=== PATIENT | female | born 1980 | race Caucasian/White ===

== ENCOUNTER 2019-04-22 08:32 | Outpatient (CLI) | payer BC, SELFPAY ==
--- NOTE | 2019-04-22 08:45 | MR_ITS ---
WS: [id number] MRI of the head and brain with and without IV contrast, 04/22/2019 Clinical Data: Vision loss Comparison: None. Findings: Ventricular system is normal without shift. No recent infarct or hemorrhage is seen. No abnormal intracerebral mass is present. The cerebellum and brainstem are unremarkable. The carotid arteries show no aneurysms. The regions of nerves VII and VIII and the mastoid air cells are unremarkable. The pituitary, intraorbital contents and paranasal sinuses are normal. No evidence of metastatic disease is seen, and there is no abnormal contrast enhancement of any struc ture. MR/MR head wo/w con [id number] Impression: Negative MRI of the head and brain.
== END 2019-04-22 08:33 | disposition home or self-care (01) ==
LOC: RADSHAW 08:32
PROVIDERS: PCP Nurse Practitioner Family; Visit Provider Nurse Practitioner Family
DX: H54.61 Unqualified visual loss, right eye, normal vision left eye (principal)
CPT/HCPCS: 70553; A9579